=== PATIENT | male | born 1985 | race African-American/Black ===

== ENCOUNTER 2017-06-04 15:33 | Emergency (ER) | payer SELFPAY ==
[~2017-06-04] VITALS: Ht 198.1 cm; Wt 113.4 kg
[~2017-06-04 15:33] MED LIST: LORazepam Inj 2mg/ml 1ml IV ONE; levETIRAcetam 500 MG in D5W 110 ML IV ONE
--- NOTE | 2017-06-04 16:24 | Emergency Room Report ---
History of Present Illness General Chief Complaint: Seizure Source: Patient Present Illness HPI Patient presents after seizure. He has a history of seizures is not taking any medications at this time. Allegedly drinking alcohol earlier today also. Denies any headache or head trauma. No nausea vomiting or diarrhea. Did not bite his tongue. No incontinence. Glucose in field is normal. He's had "falling out episodes" according to his Mom. He also complains of some upper back pain. (He initially denied any pain but then complained of 8/10 pain aching, not radiating. No numbness or weakness.) No fevers, URI sy, chest pain, palpitations, rashes. No headache. Allergies: Coded Allergies: No Known Allergies (Unverified , 06/04/17) Patient History Past Medical History: see triage record Social History: Reports: alcohol use Social History Narrative with mother Reviewed Nursing Documentation: PMH: Agreed, PSxH: Agreed Nursing Documentation-PMH Hx Seizures: Yes Physical Exam Vital Signs Date Time Temp Pulse Resp B/P (MAP) Pulse Ox O2 Delivery O2 Flow Rate FiO2 06/04/17 15:23 96.4 76 22 110/74 98 Room Air Musculoskeletal: other - upper back tenderness - not point Medical Decision Making Diagnostic Impression: Primary Impression: Seizure Additional Impression: Upper back strain Qualified Codes: S29.012A - Strain of muscle and tendon of back wall of thorax , initial encounter ER Course Patient with h/o seizure presents post seizure. Ddx: breakthrough seizure, alcohol related, electrolyte abnormality amongst others. Patient with non- focal neuro at this time and no upper respiratory symptoms. Evaluation with EKG and labs. Treatment with ativan and loading dose of Keppra. Cardiac monitoring for possible other seizure. Labs remarkable for normal WBC, elevated creat and minimally elevated CK. Patient without other seizures. Discussed seizure precautions with patient and mother and need for further evaluation. Back exam against fracture. Treated with motrin. Improved. Patient stable for outpatient observation and treatment. Laboratory Tests Test 06/04/17 17:15 06/04/17 21:35 White Blood Count 7.0 K/UL (4.8-10.8) Red Blood Count 4.35 M/UL (4.70-6.10) L Hemoglobin 14.6 G/DL (14.2-18.0) Hematocrit 41.2 % (42.0-52.0) L Mean Corpuscular Volume 95 FL (80-99) Mean Corpuscular Hemoglobin 33.6 PG (27.0-31.0) H Mean Corpuscular Hemoglobin Concent 35.5 G/DL (32.0-36.0) Red Cell Distribution Width 11.6 % (11.6-14.8) Platelet Count 179 K/UL (150-450) Mean Platelet Volume 5.7 FL (6.5-10.1) L Neutrophils (%) (Auto) 56.4 % (45.0-75.0) Lymphocytes (%) (Auto) 23.2 % (20.0-45.0) Monocytes (%) (Auto) 16.7 % (1.0-10.0) H Eosinophils (%) (Auto) 0.3 % (0.0-3.0) Basophils (%) (Auto) 3.4 % (0.0-2.0) H Sodium Level 138 mEQ/L (135-145) Potassium Level mEQ/L (3.4-4.9) Chloride Level 100 mEQ/L (98-107) Carbon Dioxide Level 27 mEQ/L (20-30) Anion Gap 11 (5-15) Blood Urea Nitrogen 7 mg/dL (7-23) Creatinine 1.5 mg/dL (0.7-1.2) H Estimate Glomerular Filtration Rate > 60 mL/min (>60) Glucose Level 101 mg/dL (74-106) Calcium Level 8.9 mg/dL (8.6-10.2) Total Bilirubin 0.6 mg/dL (0.0-1.2) Aspartate Amino Transferase (AST) 36 U/L (5-40) Alanine Aminotransferase (ALT) 11 U/L (3-41) Alkaline Phosphatase 42 U/L (40-129) Total Creatine Kinase 249 U/L (38-174) H Total Protein 7.4 g/dL (6.6-8.7) Albumin 4.2 g/dL (3.5-5.2) Globulin 3.2 g/dL Albumin/Globulin Ratio 1.3 (1.0-2.7) Acetaminophen Level 13 ug/mL (10-30) Serum Alcohol < 10 mg/dL Urine Color Pale yellow Urine Appearance Clear Urine pH 6.5 (4.5-8.0) Urine Specific [place] 1.005 (1.005-1.035) Urine Protein Negative (NEGATIVE) Urine Glucose (UA) Negative (NEGATIVE) Urine Ketones Negative (NEGATIVE) Urine Occult Blood 4+ (NEGATIVE) H Urine Nitrite Negative (NEGATIVE) Urine Bilirubin Negative (NEGATIVE) Urine Urobilinogen Normal MG/DL (0.0-1.0) Urine Leukocyte Esterase Negative (NEGATIVE) Urine RBC 2-4 /HPF (0 - 0) H Urine WBC 0-2 /HPF (0 - 0) Urine Squamous Epithelial Cells None /LPF (NONE/OCC) Urine Bacteria Few /HPF (NONE) Urine Opiates Screen Negative (NEGATIVE) Urine Barbiturates Screen Negative (NEGATIVE) Phencyclidine (PCP) Screen Negative (NEGATIVE) Urine Amphetamines Screen Negative (NEGATIVE) Urine Benzodiazepines Screen Negative (NEGATIVE) Urine Cocaine Screen Negative (NEGATIVE) Urine Marijuana (THC) Screen Positive (NEGATIVE) H EKG Diagnostic Results Rate: normal Rhythm: NSR ST Segments: no acute changes Rhythm Strip Diag. Results EP Interpretation: yes Rhythm: NSR, no PVC's, no ectopy Last Vital Signs Date Time Temp Pulse Resp B/P (MAP) Pulse Ox O2 Delivery O2 Flow Rate FiO2 06/04/17 22:35 98.0 84 16 128/71 99 Room Air Status: improved Disposition: HOME, SELF-CARE Condition: Improved Scripts Levetiracetam (Keppra) 250 Mg Tablet 500 MG ORAL EVERY 12 HOURS, #40 TAB 0 Refills Prov: Eddie Mackey M.D. 06/04/17 Eddie Mackey M.D. Jun 04, 2017 16:24
[2017-06-04 17:22] VITALS: BP 130/67
[2017-06-04] MEDS ORDERED: levETIRAcetam 500mg vial IV ONE (17:27)
[2017-06-04 17:36] LABS: BASOPHILS % (AUTO) 3.4 % (0.0-2.0); EOSINOPHILS % (AUTO) 0.3 % (0.0-3.0); LYMPHOCYTES % (AUTO) 23.2 % (20.0-45.0); MEAN CORPUSCULAR HEMOGLOBIN 33.6 PG (27.0-31.0); MEAN CORPUSCULAR HGB CONC 35.5 G/DL (32.0-36.0); MEAN CORPUSCULAR VOLUME 95 FL (80-99); MEAN PLATELET VOLUME 5.7 FL (6.5-10.1); MONOCYTES % (AUTO) 16.7 % (1.0-10.0); NEUTROPHILS % (AUTO) 56.4 % (45.0-75.0); PLATELET COUNT 179 K/UL (150-450); RED BLOOD COUNT 4.35 M/UL (4.70-6.10); RED CELL DISTRIBUTION WIDTH 11.6 % (11.6-14.8)
[2017-06-04 17:49] LABS: ACETAMINOPHEN 13 ug/mL (10-30); ALBUMIN/GLOBULIN RATIO 1.3 (1.0-2.7); ALCOHOL < 10 mg/dL; ANION GAP 11 (5-15); CALCIUM 8.9 mg/dL (8.6-10.2); CARBON DIOXIDE 27 mEQ/L (20-30); CHLORIDE 100 mEQ/L (98-107); CREATININE 1.5 mg/dL (0.7-1.2); GLOMERULAR FILTRATION RATE > 60 mL/min (>60); HEMOLYSIS 581; SODIUM 138 mEQ/L (135-145); TOTAL PROTEIN 7.4 g/dL (6.6-8.7)
[2017-06-04 17:56] LABS: ALANINE AMINOTRANSFERASE 11 U/L (3-41); ASPARTATE AMINO TRANSFERASE 36 U/L (5-40)
[2017-06-04 18:59] VITALS: BP 123/74
[2017-06-04 20:40] VITALS: BP 131/72
[2017-06-04 21:56] LABS: APPEARANCE,URINE CLEAR; KETONES,URINE NEGATIVE (NEGATIVE); LEUKOCYTE ESTERASE ,URINE NEGATIVE (NEGATIVE); NITRITE,URINE NEGATIVE (NEGATIVE); PH,URINE 6.5 (4.5-8.0); PROTEIN,URINE NEGATIVE (NEGATIVE); UROBILINOGEN,URINE NORMAL MG/DL (0.0-1.0)
[2017-06-04] MEDS ORDERED: KEPPRA500 MG ORAL (22:08)
[2017-06-04 22:22] LABS: BACTERIA,URINE FEW /HPF; WBC,URINE 0-2 /HPF (0 - 0)
[2017-06-04 22:30] VITALS: BP 128/71
[2017-06-04 22:35] VITALS: BP 128/71
--- NOTE | 2017-06-06 16:31 | Cardiology Report ---
APPROVED REPORT EKG Measurement Heart [id number] Normal sinus rhythm Septal infarct, age undetermined Abnormal ECG
== END 2017-06-04 22:35 | disposition home or self-care (01) ==
LOC: EDBD 15:33 → EMR 17:12
DX: G40.909 Epilepsy, unspecified, not intractable, without status epilepticus (principal); S29.012A Strain of muscle and tendon of back wall of thorax, initial encounter; X58.XXXA Exposure to other specified factors, initial encounter; Y93.9 Activity, unspecified; Y92.9 Unspecified place or not applicable
CPT/HCPCS: 36415; 80053; 80300; 81003; 82550; 85025; 93005; 96361; 96365; 96375; 99284; G0480; J1953; 80329; 96374